=== PATIENT | female | born 1970 | race Caucasian/White ===

== ENCOUNTER 2017-09-19 11:28 | Emergency (ER) | payer SELFPAY ==
[~2017-09-19] VITALS: Ht 162.6 cm; Wt 97.5 kg
[2017-09-19] MEDS ORDERED: CYMBALTA30 MG PO (11:43)
--- NOTE | 2017-09-20 12:06 | EKG ---
[facility] [address] [place] [address] Signed Normal sinus rhythm Nonspecific ST abnormality Abnormal ECG No previous ECGs available Confirmed by ILENE PIERCE MD ([id number] on 09/20/2017 12:05:55 PM Electronically Signed By: ILENE PIERCE MD 09/20/17 1206 PATIENT NAME: STEFFI CRUZ Electrocardiogram DATE OF : 68 PHYSICIAN: ILENE PIERCE MD REPORT #: [id number] REPORT IS CONFIDENTIAL AND NOT TO BE RELEASED WITHOUT AUTHORIZATION
== END 2017-09-19 13:23 | disposition home or self-care (01) ==
LOC: ED 11:28
DX: M25.512 Pain in left shoulder (principal); F41.0 Panic disorder [episodic paroxysmal anxiety]; Z90.710 Acquired absence of both cervix and uterus; Z79.899 Other long term (current) drug therapy; Z90.49 Acquired absence of other specified parts of digestive tract; V49.9XXA Car occupant (driver) (passenger) injured in unspecified traffic accident, initial encounter
CPT/HCPCS: 71010; 80053; 84484; 85025; 93005; 93010; 99284